=== PATIENT | female | born 1945 | race Caucasian/White ===

== ENCOUNTER 2018-02-18 22:19 | Emergency (ER) | payer MEDICARE, OTHER ==
[~2018-02-18] VITALS: Ht 162.6 cm; Wt 65.8 kg
[2018-02-18 22:29] VITALS: BP 128/79
[2018-02-18] MEDS ORDERED: AMOX/CLAVULANATE 875 MG TABLET ONE (22:43)
[2018-02-18] MEDS ORDERED: AMOX/CLAVULANATE 875 MG TABLET PO ONE (23:00)
== END 2018-02-18 22:47 | disposition home or self-care (01) ==
LOC: ER 22:22
DX: S81.851A Open bite, right lower leg, initial encounter (principal); S61.452A Open bite of left hand, initial encounter; W55.01XA Bitten by cat, initial encounter; Y93.89 Activity, other specified; Y92.89 Other specified places as the place of occurrence of the external cause; Y99.8 Other external cause status
CPT/HCPCS: 99283; A4606; Z7610

== ENCOUNTER 2021-06-30 19:52 | Emergency (ER) | payer OTHER ==
[~2021-06-30] VITALS: Ht 160 cm; Wt 63.5 kg
--- NOTE | 2021-06-30 20:30 | NUR ---
PT BIBSELF C/O LEFT HEMATOMA TO EYE BROW AND EYE AND RIB PAIN. PT AAOX4 BREATHING EVENLY AND UNLABORED. PT DENIES KO, - AB, +SB. PT ATTACHED TO MONITOR AND POX. NEURO CHECKS INTACT. MD AT BEDSIDE FOR EVAL. PT GIVEN BLANKET AND CALL LIGHT WITHIN REACH. WILL CONTINUE TO MONITOR
--- NOTE | 2021-06-30 21:09 | NUR ---
BLOOD DRAWN AND SENT TO LAB
[2021-06-30 21:20] LABS: BASOPHILS # (AUTO) 0.1 K/uL (0.0-0.2); BASOPHILS % (AUTO) 0.6 % (0.0-2.0); EOSINOPHILS % (AUTO) 3.2 % (0.0-6.0); HEMATOCRIT 44 % (33-45); HEMOGLOBIN 14.9 g/dL (11.5-14.8); LYMPHOCYTES # (AUTO) 2.5 K/uL (0.8-4.8); LYMPHOCYTES % (AUTO) 27.7 % (20.0-44.0); MEAN CORPUSCULAR HGB CONC 34 g/dl (31.0-36.0); MEAN CORPUSCULAR VOLUME 92 fL (82-100); MONOCYTES # (AUTO) 0.7 K/uL (0.1-1.30); MONOCYTES % (AUTO) 7.5 % (2.0-12.0); NEUTROPHILS # (AUTO) 5.6 K/uL (1.8-8.9); PLATELET COUNT (AUTO) 199 K/uL (150-450); RED BLOOD CELL COUNT(AUTO) 4.74 MIL/uL (4.0-5.2); WHITE BLOOD COUNT (AUTO) 9.1 K/uL (4.3-11.0)
[2021-06-30 21:37] LABS: CALCIUM, SERUM 8.7 mg/dL (8.5-10.1); CARBON DIOXIDE 29 mmol/L (21-32); CHLORIDE 104 mmol/L (98-107); CREATININE 0.7 mg/dL (0.6-1.3); GLUCOSE 88 mg/dL (74-106); POTASSIUM 3.9 mmol/L (3.5-5.1); SODIUM SERUM 142 mmol/L (136-145); UREA NITROGEN, BLOOD 22 mg/dL (7-18)
[2021-06-30 21:41] LABS: ALANINE AMINOTRANSFERASE 32 U/L (12-78); ALBUMIN 3.6 g/dL (3.4-5.0); ALKALINE PHOSPHATASE 70 U/L (46-116); ASPARTATE AMINOTRANSFERASE 22 U/L (15-37); BILIRUBIN,DIRECT 0.1 mg/dL (0.0-0.2); BILIRUBIN,TOTAL 0.4 mg/dL (0.2-1.0); LIPASE 134 U/L (73-393); TOTAL PROTEIN, SERUM 7.3 g/dL (6.4-8.2)
[2021-06-30] MEDS ORDERED: IOHEXOL-300 100 ML VIAL IV ONE (21:45)
[2021-06-30] MEDS ORDERED: IV NS 0.9% 250 ML IV ONE (21:45)
--- NOTE | 2021-06-30 22:49 | NUR ---
verbal order 650mg tylennol
[2021-06-30] MEDS ORDERED: ACETAMINOPHEN 325 MG TABLET ONE (22:50)
[2021-06-30] MEDS ORDERED: FLUORESCEIN SODIUM OPHTH 1 EA STRIP ONE (23:33)
--- NOTE | 2021-06-30 23:40 | NUR ---
visual acutiy r 20/40, L 20/70, both eyes 20/40
--- NOTE | 2021-06-30 23:47 | NUR ---
Patient discharged to home in stable condition. Written and verbal after care instructions given. Patient verbalizes understanding of instruction. IV removed. Catheter intact and site benign. Pressure and 4x4 applied to site. No bleeding noted. Pt ambulatory with a steady gait
--- NOTE | 2021-06-30 23:48 | NUR ---
Joyce lopez in ED - 06/30/21 at 2355 by SHARON visual acutiy r 20/40, L 20/70, both eyes 20/40
[2021-07-01 01:11] VITALS: BP 135/80
[2021-07-01] MEDS ORDERED: ACETAMINOPHEN 325 MG TABLET PO ONE (01:30)
== END 2021-06-30 23:47 | disposition home or self-care (01) ==
LOC: ER 19:52
DX: S09.8XXA Other specified injuries of head, initial encounter (principal); S29.8XXA Other specified injuries of thorax, initial encounter; H11.32 Conjunctival hemorrhage, left eye; H53.8 Other visual disturbances; R91.8 Other nonspecific abnormal finding of lung field; Z60.2 Problems related to living alone; V32.9XXA Unspecified occupant of three-wheeled motor vehicle injured in collision with two- or three-wheeled motor vehicle in traffic accident, initial encounter; Y93.89 Activity, other specified; Y92.89 Other specified places as the place of occurrence of the external cause; Y99.8 Other external cause status
CPT/HCPCS: 36415; 70450; 71045; 71260; 72125; 74177; 80048; 80076; 83690; 84484; 85025; 93005; 99285; J7050; Q9967

== ENCOUNTER 2023-11-16 08:48 | Emergency (ER) | payer OTHER ==
[~2023-11-16] VITALS: Ht 154.9 cm; Wt 63.5 kg
[2023-11-16] MEDS ORDERED: oxyCODONE/APAP (5/325 MG) 1 UDTAB TABLET ONE (09:31)
[2023-11-16] MEDS: oxyCODONE/APAP (5/325 MG) 1 UDTAB TABLET PO ONE (09:33)
[2023-11-16 11:48] VITALS: BP 144/73; TEMP 98.5; O2SAT 99
== END 2023-11-16 11:49 | disposition home or self-care (01) ==
LOC: ER 09:24
DX: S42.291A Other displaced fracture of upper end of right humerus, initial encounter for closed fracture (principal); M54.2 Cervicalgia; W17.89XA Other fall from one level to another, initial encounter; Y93.89 Activity, other specified; Y92.89 Other specified places as the place of occurrence of the external cause; Y99.8 Other external cause status
CPT/HCPCS: 70450-TC; 71045-TC; 72125-TC; 72170-TC; 73000-TC; 73030-TC; 73060-TC; 73080-TC; 73110; 73130-TC

== ENCOUNTER 2023-11-21 00:29 | Emergency (ER) | payer OTHER ==
[~2023-11-21] VITALS: Ht 162.6 cm; Wt 61.2 kg
[2023-11-21] MEDS ORDERED: ACETAMINOPHEN ES 500 MG TABLET ONE (01:27)
[2023-11-21] MEDS: ACETAMINOPHEN ES 500 MG TABLET PO ONE (01:27)
[2023-11-21 03:02] VITALS: BP 124/76; TEMP 98; O2SAT 96
== END 2023-11-21 03:02 | disposition home or self-care (01) ==
LOC: ER 00:32
DX: S42.201D Unspecified fracture of upper end of right humerus, subsequent encounter for fracture with routine healing (principal); W06.XXXD Fall from bed, subsequent encounter; F03.90 Unspecified dementia, unspecified severity, without behavioral disturbance, psychotic disturbance, mood disturbance, and anxiety

== ENCOUNTER 2023-11-21 18:13 | Emergency (ER) | payer OTHER ==
[~2023-11-21] VITALS: Ht 162.6 cm; Wt 61.2 kg
[2023-11-21 18:59] VITALS: TEMP 98.4
[2023-11-21 19:33] VITALS: BP 138/60; O2SAT 99
== END 2023-11-21 19:33 | disposition home or self-care (01) ==
LOC: ER 18:16
DX: S42.201D Unspecified fracture of upper end of right humerus, subsequent encounter for fracture with routine healing (principal); Z60.2 Problems related to living alone; X58.XXXD Exposure to other specified factors, subsequent encounter

== ENCOUNTER 2023-11-26 11:35 | Emergency (ER) | payer OTHER ==
[~2023-11-26] VITALS: Ht 162.6 cm; Wt 61.2 kg
[2023-11-26 11:43] VITALS: BP 145/88; TEMP 98
[2023-11-26] MEDS ORDERED: NAPR-1009 PO (11:53)
[2023-11-26 12:01] VITALS: O2SAT 97
== END 2023-11-26 12:02 | disposition home or self-care (01) ==
LOC: ER 11:35
DX: S42.201D Unspecified fracture of upper end of right humerus, subsequent encounter for fracture with routine healing (principal); X58.XXXD Exposure to other specified factors, subsequent encounter

== ENCOUNTER 2023-11-26 19:50 | Emergency (ER) | payer OTHER ==
[~2023-11-26] VITALS: Ht 162.6 cm; Wt 61.2 kg
[~2023-11-26 19:50] MED LIST: NAPR-1009 PO
[2023-11-26 19:56] VITALS: BP 142/70; TEMP 98.3; O2SAT 97
== END 2023-11-26 21:59 | disposition left against medical advice (07) ==
LOC: ER 19:53
DX: S42.291A Other displaced fracture of upper end of right humerus, initial encounter for closed fracture (principal); I82.611 Acute embolism and thrombosis of superficial veins of right upper extremity; Z79.899 Other long term (current) drug therapy; Z60.2 Problems related to living alone; X58.XXXA Exposure to other specified factors, initial encounter; Y93.89 Activity, other specified; Y92.89 Other specified places as the place of occurrence of the external cause; Y99.8 Other external cause status
CPT/HCPCS: 93971-TC

== ENCOUNTER 2023-11-27 12:38 | Emergency (ER) | payer OTHER ==
[~2023-11-27] VITALS: Ht 170.2 cm; Wt 60.8 kg
[2023-11-27 12:59] VITALS: BP 134/78; TEMP 98.4; O2SAT 100
== END 2023-11-27 14:02 | disposition home or self-care (01) ==
LOC: ER 12:38
DX: S42.201D Unspecified fracture of upper end of right humerus, subsequent encounter for fracture with routine healing (principal); F03.90 Unspecified dementia, unspecified severity, without behavioral disturbance, psychotic disturbance, mood disturbance, and anxiety; Z60.2 Problems related to living alone; X58.XXXD Exposure to other specified factors, subsequent encounter